=== PATIENT | female | born 1990 | race Hispanic/Latino ===

== ENCOUNTER 2024-12-16 15:21 | Emergency (ER) | payer SELFPAY ==
[2024-12-16 18:05] LABS: #Basophils 0.03 10x3/uL (0.0-0.2); #Eosinophils 0.04 10x3/uL (0.0-0.5); #Monocytes 0.51 10x3/uL (0.0-1.1); #Neutrophils 6.75 10x3/uL (1.5-8.4); %Basophils 0.3 % (0.0-2.0); %Eosinophils 0.4 % (0.0-6.0); %Lymphocytes 24.1 % (18.0-47.0); %Monocytes 5.3 % (0.0-10.0); %Neutrophils 69.7 % (40.0-75.0); Hematocrit 38.1 % (34.9-44.5); Hemoglobin 12.6 g/dL (12.0-15.5); Mean Corpuscular Hemoglobin 29.3 pg (27.0-33.0); Mean Corpuscular Volume 88.6 fL (81.6-98.3); Platelet Count 300 10x3/uL (150-450); Red Blood Cell (RBC) Count 4.30 10x6/uL (3.90-5.03); White Blood Cell (WBC) Count 9.69 10x3/uL (3.5-10.5)
[2024-12-16 18:12] LABS: Glucose, Urine (Dipstick) Normal (Negative); Leukocyte Negative (Negative); Protein, Urine (Dipstick) 15 mg/dl (Neg-Trace); Specific Gravity, Urine 1.005 (1.005-1.030)
[2024-12-16 18:18] LABS: ALT (SGPT) 12 U/L (Less than 34); AST (SGOT) 18 U/L (11-34); Albumin 3.1 g/dL (3.1-4.5); Alkaline Phosphatase 56 U/L (40-110); Anion Gap 10 mmol/L (10-20); BUN (Urea Nitrogen) 11 mg/dL (7.0-18.7); Bilirubin, Total 0.1 mg/dL (0.3-1.2); Calc. Creatinine Clearance 0 mL/min (70-130); Calcium 8.7 mg/dL (7.8-10.44); Carbon Dioxide 27 mmol/L (22-29); Chloride 103 mmol/L (98-107); Globulin 4.2 g/dL (2.4-3.5); Glucose 85 mg/dL (70-105); Potassium 4.0 mmol/L (3.5-5.1); Sodium 136 mmol/L (136-145)
[2024-12-16 18:20] LABS: Bacteria/HPF Rare-Few HPF (None Seen); CAUTI Indications for Culture Pelvic or flank pain; RBC/HPF 0-3 HPF (0-3); Urine Culture Reflex No No; WBC/HPF 0-3 HPF (0-3)
== END 2024-12-16 18:34 | disposition home or self-care (01) ==
LOC: CSHERS 15:21
DX: O20.8 Other hemorrhage in early pregnancy (principal); Z3A.01 Less than 8 weeks gestation of pregnancy
CPT/HCPCS: 76801; 80053; 81001; 84702; 85025; 93976

== ENCOUNTER 2025-03-14 21:17 | Observation (INO) | payer MEDICAID, OTHER, SELFPAY ==
[2025-03-14 22:11] VITALS: BMI 41.6
[2025-03-14] MEDS ORDERED: Calcium Carbonate 500 MG ChewTAB PO PRN (22:59)
[2025-03-14 23:38] LABS: Magnesium 1.9 mg/dL (1.6-2.6)
[2025-03-14 23:44] LABS: Troponin I Less than 0.010 ng/mL (< 0.028)
[2025-03-15] MEDS: Aspirin Chewable 81 MG TAB PO SCH (00:06)
[2025-03-15] MEDS: GUAIFENESIN SF SOLN 200 MG/10 ML UDCUP PO PRN (00:06)
[2025-03-15] MEDS: FLU (Fluarix Triv) 25-26 (6MOS UP)/PF 45 MCG/0.5 ML Syringe IM ONE (00:55)
[2025-03-15 04:34] LABS: #Basophils Less than 0.03 10x3/uL (0.0-0.2); #Eosinophils 0.11 10x3/uL (0.0-0.5); #Monocytes 0.57 10x3/uL (0.0-1.1); #Neutrophils 5.59 10x3/uL (1.5-8.4); %Basophils 0.1 % (0.0-2.0); %Eosinophils 1.5 % (0.0-6.0); %Lymphocytes 16.4 % (18.0-47.0); %Monocytes 7.5 % (0.0-10.0); %Neutrophils 74.1 % (40.0-75.0); Hematocrit 32.2 % (34.9-44.5); Hemoglobin 10.8 g/dL (12.0-15.5); Mean Corpuscular Hemoglobin 29.2 pg (27.0-33.0); Mean Corpuscular Volume 87.0 fL (81.6-98.3); Platelet Count 287 10x3/uL (150-450); Red Blood Cell (RBC) Count 3.70 10x6/uL (3.90-5.03); White Blood Cell (WBC) Count 7.55 10x3/uL (3.5-10.5)
[2025-03-15 04:42] LABS: Anion Gap 11 mmol/L (10-20); BUN (Urea Nitrogen) 7 mg/dL (7.0-18.7); Calc. Creatinine Clearance 286 mL/min (70-130); Calcium 8.0 mg/dL (7.8-10.44); Carbon Dioxide 20 mmol/L (22-29); Chloride 108 mmol/L (98-107); Glucose 103 mg/dL (70-105); Potassium 3.6 mmol/L (3.5-5.1); Sodium 135 mmol/L (136-145)
[2025-03-15] MEDS: Enoxaparin 40 MG (0.4 mL) SYRINGE SC SCH ×2 (08:32→20:48)
[2025-03-15] MEDS: Aspirin 81 mg Enteric Coated Tablet PO SCH (08:32)
[2025-03-15] MEDS: cefTRIAXone\\ROCEPHIN 1 GM in Sodium Chloride 0.9% 100 ML IVPB SCH (16:30)
[2025-03-15] MEDS: Azithromycin 500 MG in Sodium Chloride 0.9% 250 ML 250 ML IVPB SCH (17:52)
[2025-03-16 08:22] VITALS: BP 115/57; TEMP 98
== END 2025-03-16 12:10 | disposition home or self-care (01) ==
LOC: CSHTELE 21:52
PROVIDERS: ADMIT Family Medicine; ATTEND Internal Medicine
DX: O99.512 Diseases of the respiratory system complicating pregnancy, second trimester (principal); J18.9 Pneumonia, unspecified organism; O99.212 Obesity complicating pregnancy, second trimester; O34.219 Maternal care for unspecified type scar from previous cesarean delivery; Z3A.19 19 weeks gestation of pregnancy
CPT/HCPCS: 36415; 76805; 80048; 83735; 85025; 86480; 93005; 93010; 96372; 96374; 96375; G0378; J0456; J0696; J1650; J7050